=== PATIENT | female | born 1930 | race Caucasian/White ===

== ENCOUNTER 2016-11-11 09:39 | Outpatient (CLI) | payer MEDICARE, MEDICAID | END 2016-11-11 09:40 | disposition home or self-care (01) | DX: I10 Essential (primary) hypertension (principal); E55.9 Vitamin D deficiency, unspecified ==

== ENCOUNTER 2017-03-14 09:45 | Outpatient (CLI) | payer MEDICARE, MEDICAID | END 2017-03-14 10:00 | disposition home or self-care (01) | DX: I48.91 Unspecified atrial fibrillation (principal) ==

== ENCOUNTER 2019-01-11 12:09 | Outpatient (CLI) | payer MEDICARE, MEDICAID | END 2019-01-11 12:10 | disposition short-term general hospital (02) | LOC: EMS 12:09 | PROVIDERS: ATTEND Surgery | DX: M54.5 Low back pain (principal); X58.XXXA Exposure to other specified factors, initial encounter | CPT/HCPCS: A0425; A0429 ==

== ENCOUNTER 2020-04-23 15:58 | Outpatient (CLI) | payer MEDICARE, MEDICAID | END 2020-04-23 15:59 | disposition short-term general hospital (02) | LOC: EMS 15:58 | PROVIDERS: ATTEND Surgery | DX: M79.659 Pain in unspecified thigh (principal); W19.XXXA Unspecified fall, initial encounter; Y92.009 Unspecified place in unspecified non-institutional (private) residence as the place of occurrence of the external cause | CPT/HCPCS: A0425; A0429 ==